=== PATIENT | male | born 1970 | race Caucasian/White ===

== ENCOUNTER 2016-12-29 09:23 | Emergency (ER) | payer SELFPAY | END 2016-12-29 12:28 | disposition home or self-care (01) | LOC: ER 09:23 | DX: J20.9 Acute bronchitis, unspecified (principal); J01.00 Acute maxillary sinusitis, unspecified; S29.012A Strain of muscle and tendon of back wall of thorax, initial encounter; H54.61 Unqualified visual loss, right eye, normal vision left eye; F17.210 Nicotine dependence, cigarettes, uncomplicated | CPT/HCPCS: 36415; 70450; 74022; 80053; 80307; 81003; 82553; 83690; 83880; 84484; 85025; 85379; 85610; 85730; 93005 ==